=== PATIENT | male | born 1990 | race Caucasian/White ===

== ENCOUNTER → 2021-12-24 | Emergency (ER) | payer BC ==
--- NOTE | 2021-12-24 12:50 | NUR ---
pt name called, no answer
--- NOTE | 2021-12-24 16:16 | NUR ---
lwbs, unknown time
== END | disposition left against medical advice (07) ==
LOC: MED 12:42
DX: L02.01 Cutaneous abscess of face (principal); Z53.21 Procedure and treatment not carried out due to patient leaving prior to being seen by health care provider